=== PATIENT | female | born 1955 | race Caucasian/White ===

== ENCOUNTER 2018-01-20 18:44 | Inpatient (IN) | payer MEDICAID ==
[~2018-01-20] VITALS: Ht 160 cm; Wt 54.6 kg
[2018-01-20] MEDS ORDERED: HYDROmorphone 1 MG/ML, 1ML IVPush PRN (19:00)
[2018-01-20] MEDS ORDERED: SODIUM CHLORIDE FLUSH 10ML SYR IVF ONE (19:00)
[2018-01-20] MEDS ORDERED: PLEASE ENTER ALLERGIES MC SCH (19:00)
[2018-01-20] MEDS ORDERED: PROPOFOL 10 MG/ML, 20ML IVP ONE (19:00)
[2018-01-20] MEDS ORDERED: PROPOFOL 10 MG/ML, 20ML ONE (19:01)
[2018-01-20] MEDS ORDERED: HYDROmorphone 2 MG/ML, 1ML ONE (19:02)
[2018-01-20 19:54] LABS: BASOPHILS # (AUTO) 0.03 x10^3/uL (0-0.1); BASOPHILS % (AUTO) 0 % (0-1); EOSINOPHILS # (AUTO) 0.01 x10^3/uL (0-0.4); EOSINOPHILS % (AUTO) 0 % (1-7); LYMPHOCYTES # (AUTO) 2.61 x10^3/uL (1-3.4); LYMPHOCYTES % (AUTO) 24 % (22-44); MD NO; MEAN CORPUSCULAR HEMOGLOBIN 30.2 pg (27.0-34.8); MEAN CORPUSCULAR HGB CONC 33.1 g/dL (32.4-35.8); MEAN CORPUSCULAR VOLUME 91.5 fL (80-100); MEAN PLATELET VOLUME 8.5 fL (7.4-10.4); MONOCYTES # (AUTO) 0.55 x10^3/uL (0.2-0.8); MONOCYTES % (AUTO) 5 % (2-9); NEUTROPHILS # (AUTO) 7.51 x10^3/uL (1.8-6.8); NEUTROPHILS % (AUTO) 70 % (42-75); PLATELET COUNT 229 x10^3/uL (130-400); RED CELL DISTRIBUTION WIDTH 14.7 % (9.6-15.2)
[2018-01-20 20:02] LABS: INTERNATIONAL NORMALIZED RATIO 1.01 (0.93-1.1); PROTHROMBIN TIME 10.4 Seconds (9.6-11.5)
[2018-01-20] MEDS ORDERED: SODIUM CHLORIDE 0.9% 1,000 ML IV ONE (20:04)
[2018-01-20 20:05] LABS: ALBUMIN 3.6 g/dL (3.4-5.0); ANION GAP 6 mmol/L (5-15); CALCIUM 8.2 mg/dL (8.5-10.1); CHLORIDE 110 mmol/L (98-107)
[2018-01-20 20:09] LABS: ALANINE AMINOTRANSFERASE 53 U/L (12-78); ALKALINE PHOSPHATASE 101 U/L (45-117); BILIRUBIN,TOTAL 0.2 mg/dL (0.2-1.0); CREATININE 0.77 mg/dL (0.55-1.02); TOTAL PROTEIN 6.8 g/dL (6.4-8.2)
[2018-01-20] MEDS ORDERED: morphine SULFATE 10 MG/ML, 1ML IVPush PRN (20:30)
[2018-01-20] MEDS ORDERED: ENALAPRILAT 1.25 MG/ML, 2ML IV PRN (20:30)
[2018-01-20] MEDS ORDERED: hydrALAzine 20 MG/ML, 1ML IV PRN (20:30)
[2018-01-20] MEDS ORDERED: LABETALOL 5MG/ML, 20ML IVPush PRN (20:30)
[2018-01-20] MEDS ORDERED: METHOCARBAMOL 500 MG TABLET PO PRN (20:30)
[2018-01-20] MEDS ORDERED: SODIUM CHLORIDE FLUSH 10ML SYR IVF PRN (20:30)
[2018-01-20] MEDS ORDERED: DOCUSATE 100 MG CAPSULE PO PRN (20:30)
[2018-01-20] MEDS ORDERED: ONDANSETRON 2MG/ML, 2ML IVPush PRN (20:30)
[2018-01-20] MEDS ORDERED: BLOOD PRESSURE MED (20:40)
[2018-01-20] MEDS ORDERED: LISI-167 PO (20:40)
[2018-01-20] MEDS ORDERED: MELO15TA6 PO (20:40)
[2018-01-20 21:48] VITALS: BP 116/68
[2018-01-21] MEDS ORDERED: NS + 20MEQ KCL 1,000 ML IV SCH (00:05)
[2018-01-21] MEDS: OXYcodone/APAP 5/325MG TABLET PO PRN ×2 (00:33→23:13)
[2018-01-21 01:01] VITALS: BP 96/57
[2018-01-21 05:46] LABS: BASOPHILS # (AUTO) 0.03 x10^3/uL (0-0.1); BASOPHILS % (AUTO) 1 % (0-1); EOSINOPHILS # (AUTO) 0.01 x10^3/uL (0-0.4); EOSINOPHILS % (AUTO) 0 % (1-7); LYMPHOCYTES # (AUTO) 3.18 x10^3/uL (1-3.4); LYMPHOCYTES % (AUTO) 48 % (22-44); MD NO; MEAN CORPUSCULAR HEMOGLOBIN 30.4 pg (27.0-34.8); MEAN CORPUSCULAR HGB CONC 33.6 g/dL (32.4-35.8); MEAN CORPUSCULAR VOLUME 90.6 fL (80-100); MEAN PLATELET VOLUME 9.1 fL (7.4-10.4); MONOCYTES # (AUTO) 0.53 x10^3/uL (0.2-0.8); MONOCYTES % (AUTO) 8 % (2-9); NEUTROPHILS # (AUTO) 2.83 x10^3/uL (1.8-6.8); NEUTROPHILS % (AUTO) 43 % (42-75); PLATELET COUNT 188 x10^3/uL (130-400); RED BLOOD COUNT 2.97 x10^6/uL (3.82-5.3); RED CELL DISTRIBUTION WIDTH 14.4 % (9.6-15.2)
[2018-01-21 05:58] LABS: CHLORIDE 114 mmol/L (98-107)
[2018-01-21 06:03] LABS: ANION GAP 6 mmol/L (5-15); CALCIUM 7.9 mg/dL (8.5-10.1); CREATININE 0.62 mg/dL (0.55-1.02)
[2018-01-21 06:46] VITALS: BP 96/58
[2018-01-21] MEDS: SENNA/DOCUSATE TABLET PO SCH (07:45)
[2018-01-21 14:07] VITALS: BP 99/63
[2018-01-21] MEDS ORDERED: FENTANYL PF 250 MCG/5ML ONE (14:50)
[2018-01-21] MEDS ORDERED: MIDAZOLAM 1 MG/ML, 2ML ONE (14:54)
[2018-01-21] MEDS ORDERED: CEFAZOLIN 1,000 MG ONE (15:20)
[2018-01-21] MEDS ORDERED: ONDANSETRON 2MG/ML, 2ML ONE (15:20)
[2018-01-21] MEDS ORDERED: OXYcodone 5 MG/5 ML ORAL.SOL UDC PO PRN (16:30)
[2018-01-21] MEDS ORDERED: HYDROmorphone 1 MG/ML, 1ML IV PRN (16:30)
[2018-01-21] MEDS ORDERED: EPHEDRINE 50 MG/ML, 1ML IVPush PRN (16:30)
[2018-01-21] MEDS ORDERED: ONDANSETRON 2MG/ML, 2ML IVPush PRN (16:30)
[2018-01-21] MEDS ORDERED: PROMETHAZINE 25 MG/ML, 1ML IV PRN (16:30)
[2018-01-21] MEDS ORDERED: ALBUTEROL/IPRATROPIUM 2.5MG/0.5MG, 3 ML NPPB PRN (16:30)
[2018-01-21] MEDS ORDERED: MIDAZOLAM 1 MG/ML, 2ML IV PRN (16:30)
[2018-01-21] MEDS ORDERED: LORazepam 2 MG/ML, 1ML IVPush PRN (16:30)
[2018-01-21] MEDS ORDERED: HYDROmorphone 2 MG/ML, 1ML ONE (16:55)
[2018-01-21] MEDS ORDERED: PROPOFOL 10 MG/ML, 20ML ONE ×2 (16:57)
[2018-01-21] MEDS ORDERED: SUCCINYLCHOLINE 20 MG/ML, 10ML ONE (16:57)
[2018-01-21] MEDS ORDERED: OXYcodone 5 MG/5 ML ORAL.SOL UDC ONE (17:38)
[2018-01-21] MEDS ORDERED: ACETAMINOPHEN 650 MG/20.3 ML UDC ONE (17:38)
[2018-01-21] MEDS ORDERED: FENTANYL PF 100 MCG/2ML ONE (17:38)
[2018-01-21] MEDS: FENTANYL PF 100 MCG/2ML IV PRN ×2 (17:52→18:02)
[2018-01-21] MEDS: ACETAMINOPHEN 325 MG TABLET PO PRN (17:55)
[2018-01-21 20:00] VITALS: BP 104/71
[2018-01-21] MEDS: KETOROLAC 30 MG/1 ML IVPush SCH (20:53)
[2018-01-22] VITALS: BP 106/60
[2018-01-22] MEDS: CEFAZOLIN PMX 1GM/50ML 50 ML IVPB SCH ×2 (00:06→07:54)
[2018-01-22 04:54] VITALS: BP 100/58
[2018-01-22] MEDS: KETOROLAC 30 MG/1 ML IVPush SCH ×2 (05:12→12:48)
[2018-01-22 05:51] LABS: MEAN CORPUSCULAR HEMOGLOBIN 30.5 pg (27.0-34.8); MEAN CORPUSCULAR HGB CONC 33.7 g/dL (32.4-35.8); MEAN CORPUSCULAR VOLUME 90.5 fL (80-100); MEAN PLATELET VOLUME 9.5 fL (7.4-10.4); PLATELET COUNT 141 x10^3/uL (130-400); RED BLOOD COUNT 2.42 x10^6/uL (3.82-5.3); RED CELL DISTRIBUTION WIDTH 14.5 % (9.6-15.2)
[2018-01-22 06:01] LABS: ANION GAP 8 mmol/L (5-15); CALCIUM 7.5 mg/dL (8.5-10.1); CHLORIDE 113 mmol/L (98-107)
[2018-01-22 06:02] LABS: CREATININE 0.57 mg/dL (0.55-1.02)
[2018-01-22 06:32] LABS: MD YES
[2018-01-22 06:34] LABS: BAND#(MANUAL) 0.12 x10^3/uL; BANDS%(MANUAL) 2 % (0-7); BASOS#(MANUAL) 0.06 x10^3/uL (0-0.1); BASOS% (MANUAL) 1 % (0-1); LYMPH#(MANUAL) 1.24 x10^3/uL (1-3.4); LYMPHS% (MANUAL) 20 % (22-44); MONOS#(MANUAL) 0.37 x10^3/uL (0.3-2.7); MONOS% (MANUAL) 6 % (2-9); SEGS% (MANUAL) 71 % (42-75)
[2018-01-22 06:36] VITALS: BP 102/57
[2018-01-22 06:37] LABS: <PLT MORPHOLOGY> NORMAL PLT MORPH; ANISOCYTOSIS 1+; OVALOCYTES 1+
[2018-01-22 06:39] LABS: <PLATELET ESTIMATE> ADEQUATE
[2018-01-22] MEDS: SENNA/DOCUSATE TABLET PO SCH (07:54)
[2018-01-22] MEDS: ENOXAPARIN 40 MG/0.4 ML SQ SCH (07:55)
[2018-01-22] MEDS: OXYcodone/APAP 5/325MG TABLET PO PRN ×3 (07:55→23:50)
[2018-01-22 12:30] VITALS: BP 105/74
[2018-01-22] MEDS: FERROUS SULFATE 325 MG TABLET PO SCH (17:12)
[2018-01-22 20:00] VITALS: BP 106/65
[2018-01-23] VITALS (9 sets, daily range): BP systolic 118–148; BP diastolic 70–89
[2018-01-23] MEDS: OXYcodone/APAP 5/325MG TABLET PO PRN ×3 (04:59→23:16)
[2018-01-23 05:28] LABS: CHLORIDE 108 mmol/L (98-107)
[2018-01-23 05:31] LABS: MEAN CORPUSCULAR HEMOGLOBIN 30.1 pg (27.0-34.8); MEAN CORPUSCULAR HGB CONC 33.4 g/dL (32.4-35.8); MEAN CORPUSCULAR VOLUME 89.9 fL (80-100); MEAN PLATELET VOLUME 8.9 fL (7.4-10.4); PLATELET COUNT 151 x10^3/uL (130-400); RED BLOOD COUNT 2.39 x10^6/uL (3.82-5.3); RED CELL DISTRIBUTION WIDTH 14.1 % (9.6-15.2)
[2018-01-23 05:34] LABS: ANION GAP 6 mmol/L (5-15); CALCIUM 7.6 mg/dL (8.5-10.1); CREATININE 0.63 mg/dL (0.55-1.02)
[2018-01-23 06:00] LABS: BASOPHILS # (AUTO) 0.01 x10^3/uL (0-0.1); BASOPHILS % (AUTO) 0 % (0-1); EOSINOPHILS # (AUTO) 0.01 x10^3/uL (0-0.4); EOSINOPHILS % (AUTO) 0 % (1-7); LYMPHOCYTES # (AUTO) 3.03 x10^3/uL (1-3.4); LYMPHOCYTES % (AUTO) 39 % (22-44); MD SCAN; MONOCYTES # (AUTO) 0.55 x10^3/uL (0.2-0.8); MONOCYTES % (AUTO) 7 % (2-9); NEUTROPHILS # (AUTO) 4.21 x10^3/uL (1.8-6.8); NEUTROPHILS % (AUTO) 54 % (42-75)
[2018-01-23] MEDS: ENOXAPARIN 40 MG/0.4 ML SQ SCH (07:39)
[2018-01-23] MEDS: FERROUS SULFATE 325 MG TABLET PO SCH ×3 (07:39→16:32)
[2018-01-23] MEDS: SENNA/DOCUSATE TABLET PO SCH (07:39)
[2018-01-23] MEDS: ACETAMINOPHEN 325 MG TABLET PO PRN ×2 (10:00→23:15)
[2018-01-24 01:57] VITALS: BP 106/68
[2018-01-24 05:28] LABS: ANION GAP 7 mmol/L (5-15); CHLORIDE 106 mmol/L (98-107)
[2018-01-24 05:30] LABS: CREATININE 0.44 mg/dL (0.55-1.02)
[2018-01-24 05:41] LABS: BASOPHILS # (AUTO) 0.04 x10^3/uL (0-0.1); BASOPHILS % (AUTO) 1 % (0-1); EOSINOPHILS # (AUTO) 0.03 x10^3/uL (0-0.4); EOSINOPHILS % (AUTO) 0 % (1-7); LYMPHOCYTES % (AUTO) 36 % (22-44); MD NO; MEAN CORPUSCULAR HEMOGLOBIN 30.9 pg (27.0-34.8); MEAN CORPUSCULAR HGB CONC 33.8 g/dL (32.4-35.8); MEAN CORPUSCULAR VOLUME 91.3 fL (80-100); MEAN PLATELET VOLUME 9.8 fL (7.4-10.4); MONOCYTES # (AUTO) 0.57 x10^3/uL (0.2-0.8); MONOCYTES % (AUTO) 7 % (2-9); NEUTROPHILS # (AUTO) 4.36 x10^3/uL (1.8-6.8); NEUTROPHILS % (AUTO) 56 % (42-75); PLATELET COUNT 155 x10^3/uL (130-400); RED BLOOD COUNT 2.89 x10^6/uL (3.82-5.3); RED CELL DISTRIBUTION WIDTH 13.9 % (9.6-15.2)
[2018-01-24] MEDS: ENOXAPARIN 40 MG/0.4 ML SQ SCH (08:33)
[2018-01-24] MEDS: SENNA/DOCUSATE TABLET PO SCH (08:33)
[2018-01-24] MEDS: FERROUS SULFATE 325 MG TABLET PO SCH ×3 (08:34→16:13)
[2018-01-24] MEDS: OXYcodone/APAP 5/325MG TABLET PO PRN ×2 (09:54→19:21)
[2018-01-24] MEDS ORDERED: OXYC-302 PO (10:03)
[2018-01-24] MEDS ORDERED: GLYCERIN ADULT SUPP PR PRN (11:30)
[2018-01-24] MEDS ORDERED: MAGNESIUM CITRATE 300ML ORAL SOL PO PRN (11:30)
[2018-01-24 13:11] VITALS: BP 116/78
[2018-01-24 13:37] VITALS: BP 147/75
[2018-01-24 18:50] VITALS: BP 123/81
[2018-01-24 19:10] VITALS: BP 129/79
[2018-01-24] MEDS: ACETAMINOPHEN 325 MG TABLET PO PRN (19:21)
[2018-01-25 03:30] VITALS: BP 132/75
[2018-01-25] MEDS: OXYcodone/APAP 5/325MG TABLET PO PRN ×2 (04:21→16:09)
[2018-01-25 05:32] LABS: BASOPHILS # (AUTO) 0.02 x10^3/uL (0-0.1); BASOPHILS % (AUTO) 0 % (0-1); EOSINOPHILS # (AUTO) 0.14 x10^3/uL (0-0.4); EOSINOPHILS % (AUTO) 2 % (1-7); LYMPHOCYTES # (AUTO) 2.09 x10^3/uL (1-3.4); LYMPHOCYTES % (AUTO) 34 % (22-44); MD NO; MEAN CORPUSCULAR HEMOGLOBIN 31.1 pg (27.0-34.8); MEAN CORPUSCULAR VOLUME 91.4 fL (80-100); MEAN PLATELET VOLUME 9.4 fL (7.4-10.4); MONOCYTES # (AUTO) 0.56 x10^3/uL (0.2-0.8); MONOCYTES % (AUTO) 9 % (2-9); NEUTROPHILS # (AUTO) 3.26 x10^3/uL (1.8-6.8); NEUTROPHILS % (AUTO) 54 % (42-75); PLATELET COUNT 170 x10^3/uL (130-400); RED BLOOD COUNT 3.01 x10^6/uL (3.82-5.3); RED CELL DISTRIBUTION WIDTH 13.9 % (9.6-15.2)
[2018-01-25 05:36] LABS: ANION GAP 8 mmol/L (5-15); CALCIUM 7.8 mg/dL (8.5-10.1); CHLORIDE 104 mmol/L (98-107)
[2018-01-25 05:38] LABS: CREATININE 0.52 mg/dL (0.55-1.02)
[2018-01-25 07:02] VITALS: BP 130/72
[2018-01-25] MEDS: POLYETHYLENE GLYCOL 17 GM PACKET PO PRN (08:51)
[2018-01-25] MEDS: FERROUS SULFATE 325 MG TABLET PO SCH ×3 (08:52→16:09)
[2018-01-25] MEDS: ENOXAPARIN 40 MG/0.4 ML SQ SCH (08:52)
[2018-01-25] MEDS: SENNA/DOCUSATE TABLET PO SCH (08:52)
[2018-01-25 14:44] VITALS: BP 103/60
[2018-01-25 18:42] VITALS: BP 102/61
[2018-01-26] MEDS: OXYcodone/APAP 5/325MG TABLET PO PRN ×3 (00:28→18:56)
[2018-01-26 03:55] VITALS: BP 119/76
[2018-01-26 07:21] VITALS: BP 130/85
[2018-01-26] MEDS: FERROUS SULFATE 325 MG TABLET PO SCH ×3 (08:25→17:22)
[2018-01-26] MEDS: SENNA/DOCUSATE TABLET PO SCH (08:25)
[2018-01-26] MEDS: ENOXAPARIN 40 MG/0.4 ML SQ SCH (08:26)
[2018-01-26] MEDS: POLYETHYLENE GLYCOL 17 GM PACKET PO PRN (08:27)
[2018-01-26 14:00] VITALS: BP 101/62
[2018-01-26 22:45] VITALS: BP 99/62
[2018-01-27] MEDS: OXYcodone/APAP 5/325MG TABLET PO PRN ×2 (01:19→08:28)
[2018-01-27 04:17] VITALS: BP 124/66
[2018-01-27 08:37] VITALS: BP 117/72
== END 2018-01-27 08:45 | DRG 481 ==
LOC: SUATTDRO 20:10 → ED 20:15 → EDIP 20:16 → ED 20:29 → MERGE 20:29 → 4NOR 20:45
PROVIDERS: ADMIT Family Medicine; ATTEND Family Medicine
PROC: 0QS9XZZ Reposition Left Femoral Shaft, External Approach (ICD-10-PCS; 2018-01-20)
PROC: 2W6PXZZ Traction of Left Upper Leg (ICD-10-PCS; 2018-01-20)
PROC: 0QS904Z Reposition Left Femoral Shaft with Internal Fixation Device, Open Approach (ICD-10-PCS; principal; 2018-01-21 14:30)
PROC: 30233N1 Transfusion of Nonautologous Red Blood Cells into Peripheral Vein, Percutaneous Approach (ICD-10-PCS; 2018-01-23)
DX: S72.342A Displaced spiral fracture of shaft of left femur, initial encounter for closed fracture (principal); D62 Acute posthemorrhagic anemia; M97.02XA Periprosthetic fracture around internal prosthetic left hip joint, initial encounter; Y93.89 Activity, other specified; Y92.049 Unspecified place in boarding-house as the place of occurrence of the external cause; Y99.8 Other external cause status; E61.1 Iron deficiency; W00.0XXA Fall on same level due to ice and snow, initial encounter; D72.829 Elevated white blood cell count, unspecified; F12.90 Cannabis use, unspecified, uncomplicated; I10 Essential (primary) hypertension; J44.9 Chronic obstructive pulmonary disease, unspecified; K59.00 Constipation, unspecified; Z80.9 Family history of malignant neoplasm, unspecified
CPT/HCPCS: 36415; 76001; 80048; 80053; 82040; 82306; 82330; 82728; 83540; 83550; 83735; 84466; 85014; 85018; 85025; 85610; 85730; 86850; 86900; 86923; 93005; 96374; 96375; 99152; C1713; J0690; J1170; J1650; J1885; J2250; J2405; J2704; J3010; J3480; J0330; J2270; P9016